=== PATIENT | female | born 1995 | race Two or more races ===

== ENCOUNTER 2024-08-04 13:05 | Emergency (ER) | payer MEDICAID, SELFPAY ==
[2024-08-04 13:39] VITALS: BP 109/75; PULSE 86; RESP 18; TEMP 36.6; O2SAT 99; BMI 30.4
--- NOTE | 2024-08-04 13:39 | EDNOTE_ITS ---
ED Dental RME/HPI General Chief complaint: Dental/Oral/Throat Stated complaint: swollen throat cannot talk, b/l ear pain right eye Time Seen by Provider: 08/04/24 13:23 Arrival date/time: 08/04/24 13:05 29-year-old female presents emergency department complains of sore throat there are no other associated symptoms or aggravating factors no other modifying factors, patient denies taking medication before coming to ER today Limitations: no limitations Related Data Previous Rx's ?Medication ?Instructions ?Recorded ibuprofen 600 mg tablet 600 mg PO Q6HR PRN PAIN #25 tabs 08/16/16 ibuprofen 800 mg tablet 800 mg PO Q6H PRN pain #14 t abs 05/01/24 amoxicillin 875 mg-potassium 1 tab PO BID 7 days #14 t abs 08/04/24 clavulanate 125 mg tablet ibuprofen 800 mg tablet 800 mg PO TID PRN pain #30 t abs 08/04/24 Allergies Allergy/AdvReac Type Severity Reaction Status Date / Time No Known Allergies Allergy Verified 08/04/24 13:08 Review of Systems Review of Systems Systems Reviewed: All systems reviewed, normal except as documented Constitutional Constitutional: Reports system reviewed and no additional complaints, except as documented, Denies fever(s) and Denies headache(s) Eyes Eyes: Reports system reviewed and no additional complaints, except as documented and Denies blurry vision ENT Ears, Nose, Mouth, and Throat: Reports system reviewed and no additional complaints, except as documented, Denies headache(s), Reports nasal congestion, Reports nasal discharge, Reports sore throat and Reports throat swelling Cardiovascular Cardiovascular: Reports system reviewed and no additional complaints, except as documented, Denies chest pain and Denies dyspnea Respiratory Respiratory: Reports system reviewed and no additional complaints, except as documented, Denies chest congestion, Denies cough and Denies dyspnea Gastrointestinal Gastrointestinal: Reports system reviewed and no additional complaints, except as documented and Denies abdominal pain Integumentary/Breasts Skin/Breast: Reports system reviewed and no additional complaints, except as documented and Denies rash Neurologic Neurologic: Reports system reviewed and no additional complaints, except as documented, Reports as per HPI and Denies headache(s) Allergic/Immunologic Allergic/Immunologic: Reports throat swelling Past Medical History Past Medical History CARDIAC: Negative Congestive Heart Failure RESPIRATORY: Negative Chronic Obstructive Pulmonary Disease (COPD) GENITOURINARY: Negative Renal Disease ENDOCRINE: Negative Diabetes Mellitus Type 1 or Diabetes Mellitus Type 2 Social History SMOKING STATUS: Never smoker ED Exam General Limitations: Present no limitations General appearance: Present alert and in no apparent distress Head Head exam: Present atraumatic Eye Eye exam: Present normal appearance, PERRL and EOMI ENT ENT exam: Present normal exam, normal oropharynx and mucous membranes moist Neck Neck exam: Present normal inspection, full ROM and trachea midline Chest Chest inspection: Present normal inspection and symmetric chest wall rise Respiratory Respiratory exam: Present normal lung sounds bilaterally Cardiovascular Cardiovascular exam: Present regular rate, normal rhythm and normal heart sounds Abdominal Exam Abdominal exam: Present soft and normal bowel sounds Extremities Exam Extremities exam: Present normal inspection and full ROM Back Exam Back exam: Present normal inspection and full ROM Neurological Exam Neurological exam: Present alert, oriented X3 and CN II-XII intact Psychiatric Psychiatric exam: Present normal affect and normal mood Skin Skin exam: Present warm, dry, intact and normal color Course Quality Measures none Orders Category Date Time Status Dexamethasone Inj [Decadron Inj] Med 08/04/24 13:39 Discontinued 10 mg PO X1 ONE Ibuprofen Tab [Motrin Tab] Med 08/04/24 13:39 Discontinued 800 mg PO X1 ONE Vital Signs Vital signs: Vital Signs Temperature 97.8 F 08/04/24 13:39 Pulse Rate 86 08/04/24 13:39 Respiratory Rate 18 08/04/24 13:39 Blood Pressure 109/75 08/04/24 13:39 Pulse Oximetry (%) 99 08/04/24 13:39 Oxygen Delivery Method Room Air 08/04/24 13:39 o2 sat 99% r/ wnl Dental / Oral MDM Narrative MDM Narrative:: 29-year-old female presents emergency department complains of sore throat there are no other associated symptoms or aggravating factors no other modifying factors, patient denies taking medication before coming to ER today. Patient reports no chance of On exam patient well-appearing patient does not appear ill or toxic and in no acute distress Patient has no difficulty breathing no significant swelling of the throat no trismus no hoarseness of voice Patient given steroids and ibuprofen here Patient discharged home in no distress to follow-up with primary care doctor in the next 24 to 48 hours and for any worsening symptoms to return to the ER immediately Patient data External records reviewed:: [facility] previous records Clinical information provided by:: patient Social determinants that could affect healthcare access:: none Patient has the following chronic illnesses:: none How is presenting disease/condition affected by chronic disease/condition?: no chronic disease Evaluation data The following diagnostics were reviewed and interpreted by me:: other (specify) (n.a) Lab and/or radiology exams considered but not ordered:: considered not ordered Interpretation Summary: na Medications / Prescriptions Medications or Prescriptions considered but not ordered:: Given Medication administrations:: Medication Administration History Discontinued Medications Dexamethasone Sodium Phosphate (Dexamethasone Sod Phos Inj 10 Mg/Ml Vial) 10 mg PO X1 ONE Stop: 08/04/24 13:40 Last Admin: 08/04/24 13:55 Dose: 10 mg Documented By: Ibuprofen (Ibuprofen Tab 400 Mg Tablet) 800 mg PO X1 ONE Stop: 08/04/24 13:40 Last Admin: 08/04/24 13:56 Dose: 800 mg Documented By: Given Consultations Consultation(s) initiated? (list below): No Diagnosis Dental Differential Diagnosis: gingival abscess, dental caries, toothache, dental abscess and fracture of tooth Most likely diagnosis given after review of the tests above:: Sore throat Admission Indicated Admission indicated?: not indicated Admission Request Was there a request for admission?: No Disposition Plan Disposition Plan: Discharge Discharge Attestation Discharge Attestation: The patient and all family members were given an opportunity to ask questions and understood the discharge instructions. Discharge instructions specifically effects, indications for sooner follow up or return to the emergency department, and the expected course of current diagnosis. Patient condition: Stable Discharge Plan Plan Patient Disposition: HOME (Self Care) Disposition Comment: Stable Prescriptions/Referrals Prescriptions/Med Rec: New ibuprofen 800 mg tablet 800 mg PO TID PRN (Reason: pain) Qty: 30 0RF amoxicillin-pot clavulanate 875-125 mg tablet 1 tab PO BID 7 Days Qty: 14 0RF No Action ibuprofen 600 MG tablet 600 mg PO Q6HR PRN (Reason: PAIN) Qty: 25 0RF ibuprofen 800 mg tablet 800 mg PO Q6H PRN (Reason: pain) Qty: 14 0RF Problem List Clinical Impression: Pharyngitis Patient/Caregiver Discharge Instructions Education Materials: Self-Care for Sore Throats Additional Instructions: Please follow up with your primary care doctor in the next 24-48hrs for any worsening symptoms return here immediately Print Language: [place] Citizen Stand Alone Forms: [employer] Award Info., Patient Portal Info Letter PA/[employer] Supervising Physician PA/[employer] Supervising Physician: Dr [email or web address]
[2024-08-04] MEDS: DEXAMETHASONE SOD PHOS INJ 10 MG/ML VIAL PO (13:55)
[2024-08-04] MEDS: IBUPROFEN TAB 400 MG TABLET 800 MG PO (13:56)
== END 2024-08-04 14:04 | disposition home or self-care (01) ==
LOC: SERX 13:56
PROVIDERS: Emergency Provider Emergency Medicine
DX: J02.9 Acute pharyngitis, unspecified (principal)
CPT/HCPCS: 99282; J1100; A9270

== ENCOUNTER → 2025-02-22 | Outpatient (CLI) | payer MEDICAID, SELFPAY ==
[2025-02-14 10:51] LABS: HCG Qualitative,Urine Negative
[2025-02-22 10:29] LABS: HCG Qualitative,Urine Negative
== END | disposition home or self-care (01) ==
PROVIDERS: PCP Family Medicine; Referring Provider Family Medicine; Visit Provider Family Medicine
DX: Z32.00 Encounter for pregnancy test, result unknown (principal); H47.10 Unspecified papilledema
CPT/HCPCS: 81025

== ENCOUNTER → 2025-04-11 | Outpatient (CLI) | payer MEDICAID, SELFPAY ==
[2025-04-11 09:33] LABS: HCG Qualitative,Urine Negative
== END | disposition home or self-care (01) ==
LOC: SMRI 08:59 → SLAB 04-14 08:12
PROVIDERS: PCP Family Medicine; Referring Provider Optometrist; Visit Provider Optometrist
DX: Z32.00 Encounter for pregnancy test, result unknown (principal)
CPT/HCPCS: 81025